=== PATIENT | female | born 1940 | race Caucasian/White ===

== ENCOUNTER 2023-11-16 23:35 | Emergency (ER) | payer OTHER, SELFPAY ==
--- NOTE | 2023-11-16 | ECG_ITS ---
Test Reason : CP Blood Pressure : / mmHG Vent. Rate : 060 BPM Atrial Rate : 060 BPM P-R Int : 234 ms QRS Dur : 098 ms QT Int : 446 ms P-R-T Axes : -02 -51 050 degrees QTc Int : 446 ms Atrial-paced rhythm with 1st degree A-V block Left anterior fascicular block Moderate voltage criteria for LVH, may be normal variant ( R in aVL , Sean product ) Abnormal ECG No previous ECGs available Referred By: Generic ED Physician Electronically Signed By:JU CONTE MD
--- NOTE | ~2023-11-16 | CT_ITS ---
EXAMINATION: CT ANGIOGRAM OF THE CHEST WITH AND WITHOUT CONTRAST (CT PULMONARY ANGIOGRAM FOR PE) CLINICAL INFORMATION: Reason for Exam sob COMPARISON: None available. TECHNIQUE: Prior to contrast administration, noncontrast localization images were obtained. Subsequently, multidetector volumetric imaging was performed from the thoracic inlet to below the diaphragms following the administration of 100 mL Omnipaque 350 intravenous contrast. No contrast reaction reported Sagittal, coronal, and MIP oblique sagittal reformatted images were obtained on the CT workstation, uploaded to PACS, and reviewed. This CT examination was performed using dose optimization techniques as appropriate, variously including the following: *Automated exposure control *Adjustment of mA and/or kV according to patient size (this includes techniques or standardized protocols for targeted exams where dose is matched to indication/reason for exam; i.e. extremities or head) *Use of iterative reconstruction technique Total exam dose-length product 257 mGy-cm FINDINGS: QUALITY OF STUDY/CONTRAST BOLUS: Satisfactory. PULMONARY ARTERIES: No filling defects are seen in the main, lobar, or segmental pulmonary arteries to suggest the presence of pulmonary emboli. THORACIC AORTA: No aneurysm or dissection. There is atherosclerotic calcification along the aorta. LUNG: Mild curvilinear debris noted within the trachea. Mosaic attenuation appearance of the lungs is suspicious for heterogeneous air trapping. Mild subsegmental atelectasis bilaterally. Right upper lobe 3 mm nodule on image 129/458. A couple 3 mm right middle lobe nodules are present such as on images 249 and 254/458. PLEURA: No pleural effusion or pneumothorax. MEDIASTINUM: The visualized thyroid gland is unremarkable. Borderline enlarged subcarinal lymph node. Mildly prominent bilateral hilar lymph nodes. Borderline cardiomegaly without pericardial effusion. Left-sided pacemaker lead tips extend to the right atrium and right ventricle. CORONARY ARTERY CALCIFICATION: Present CHEST WALL/AXILLA: No axillary or internal mammary lymphadenopathy. OSSEOUS STRUCTURES: Multilevel degenerative changes in the spine. UPPER ABDOMEN: Left hepatic lobe cyst. No reflux of contrast into the hepatic veins to suggest elevated right heart pressures. CT/CT angio chest PE protocol IMPRESSION: 1. No pulmonary embolus identified. 2. Mosaic attenuation appearance of the lungs is suspicious for heterogeneous air trapping. 3. Mildly prominent mediastinal and hilar lymph nodes, nonspecific and possibly reactive. In the proper clinical setting, malignant etiology cannot be excluded. 4. Few right lung nodules measuring up to 3 mm. According to the UPDATED 2017 Fleischner Society recommendations, the advised follow-up imaging for solid nodules < 6 mm is: LOW RISK PATIENT: No routine follow-up. HIGH RISK PATIENT: Optional CT at 12 months. VTE: negative.
[2023-11-16 23:41] VITALS: BP 115/70; PULSE 60; O2SAT 99
[2023-11-16 23:46] VITALS: BP 154/68; PULSE 60; RESP 15; TEMP 36.6; O2SAT 96; BMI 23.1
[2023-11-16 23:51] VITALS: PULSE 60
[2023-11-17 00:05] LABS: MANUAL DIFF FLAG NO
[2023-11-17 00:06] LABS: Basophils Percent Auto 0.4 % (0-2); Eosinophils Percent Auto 0.6 % (0-4); Hematocrit 36.7 % (37.0-47.0); Hemoglobin 12.4 g/dl (12.0-16.0); Imm Gran Abs Auto 0.01 X10*3/uL (0.00-0.03); Imm Gran Pct Auto 0.2 % (0.0-0.4); Lymphocytes Absolute Auto 1.4 X10*3/uL (1.2-4.9); Lymphocytes Percent Auto 27.5 % (20-40); Mean Corpuscular HGB Conc 33.8 g/dl (31.0-35.0); Mean Corpuscular Hemoglobin 30.8 pg (27.0-33.0); Mean Corpuscular Volume 91.3 fL (80.0-98.0); Mean Platelet Volume 10.5 fL (9.4-12.3); Monocytes Absolute Auto 0.7 X10*3/uL (0.1-1.2); Monocytes Percent Auto 12.9 % (2-11); Neutrophils Absolute Auto 2.9 x10*3/uL (2.0-8.3); Neutrophils Percent Auto 58.4 % (45-73); Platelet Count 170 X10*3/uL (160-400); Red Blood Count 4.02 X10*6/uL (4.20-5.50); Red Cell Distribution Width 12.9 % (11.0-16.0)
[2023-11-17 00:23] LABS: Anion Gap 14 (12-20); Blood Urea Nitrogen 24 mg/dL (9-16); Calcium 8.9 mg/dL (8.4-10.2); Carbon Dioxide 24 mmol/L (22-29); Chloride 112 mmol/L (96-108); Creatinine Clr Calc Pharmacy 38.7; Estimated Glomerular Filt Rate 47; Glucose Random 107 mg/dL (60-115); Potassium 3.9 mmol/L (3.3-5.1); Sodium 146 mmol/L (135-145)
[2023-11-17 00:29] LABS: Troponin-I High Sensitivity 17.4 ng/L (<3.5-17.0)
--- NOTE | 2023-11-17 01:12 | ED.CHESTPAIN ---
HPI - Chest Pain General Chief Complaint: Chest Pain Stated Complaint: cp Time Seen by Provider: 11/17/23 00:11 History of Present Illness HPI narrative: Patient is an 83-year-old female presents today with having chest pain that goes from the scapula to the right chest. The pain is sharp. 7/10. Associated with some shortness of breath. There has no diaphoresis. No fever no chills no coughing congestion. Has a history of a pacemaker. Claims the pain is worse with movement. Baseline is on Lasix aspirin and nitro. No fever no chills . ? hx of mi Related Data Allergies Allergy/AdvReac Type Severity Reaction Status Date / Time naproxen [NAPROXEN] Allergy Mild UNKNOWN Unverified 11/16/23 23:49 Penicillins [PENICILLINS] Allergy Unknown RASH Unverified 11/16/23 23:49 Penicillin Allergy Unknown Rash Uncoded 11/16/23 23:49 Review of Systems Review of Systems: Positive chest pain No diaphoresis No fever no chills Yes all other systems are reviewed and are negative [facility] Past Medical History Attestation statement: The following information was validated with the patient. Social History Social History Smoked in Last 30 Days: No Use of substances other than those prescribed or required for medical reasons: No Advance Directives: No Advance Directives Information Provided: Yes Physical Exam Vital Signs: Vital Signs: Last Vital Signs Temp 97.7 F 11/17/23 01:43 Pulse 60 11/17/23 01:43 Resp 16 11/17/23 01:43 BP 115/58 L 11/17/23 01:43 Pulse Ox 98 11/17/23 01:43 O2 Del Method Room Air 11/17/23 01:43 BMI result Body Mass Index 23.1 Appearance: Alert. Oriented X3. No acute distress. Eyes: Pupils equal, round and reactive to light. ENT: Pharynx normal. Neck: Normal inspection. Neck supple. No lymph nodes noted. No crepitus CVS: Normal heart rate and rhythm. Pulses normal. Normal S1 and S2 Respiratory: No respiratory distress. Breath sounds normal. No Wheezing. No rales Abdomen: Soft and nontender. No rigidity. No distention. good BS x4 Skin: Skin warm and dry. Normal skin color. Normal skin turgor. Extremities: No lower extremity edema. Neurovascular intact to all extremities. No Lacerations. No Rash Neuro: Oriented X 3. No motor deficit. No sensory deficit. Moving all extermities. No slurred speech Medications Administered Discontinued Medications Generic Name Dose Route Start Last Admin Trade Name Jaimee PRN Reason Stop Dose Admin Iohexol 65 ml 11/17/23 01:27 11/17/23 01:27 Iohexol 350 Mg/Ml 100 Ml Infus..Btl IV 11/17/23 01:28 65 ml ONCE ONE Administration Medical Decision Making Medical Decision Making [facility] Narrative: My interpretation of patient's EKG showed a sinus rhythm heart rate is 60 NE QRS QTC normal there is no acute ST segment elevation patient has chest pain that goes from the right scapular area to the right chest it is very sharp is worse with movement. Patient's pacemaker was interrogated. First set of troponin came back at 17. EKG not consistent with ACS. Patient denies being on blood thinners. Will get a CTA of the chest to rule out the possibility of PE. Second set of troponin is pending. Two sets of troponin was done. Patient's pain was atypical for ACS they were both negative. Patient's pacemaker was interrogated. Per [employer] report there was no episodes of ventricular tachycardia noted. One episode of nonsustained ventricular episode noted since November 29 2022. CTA of the chest showed no acute evidence of pulmonary emboli. No evidence for gross dissection. It did show enlarged lymph nodes , a few right-sided pulmonary nodules. Which will require follow-up on an outpatient basis. On recheck patient's pain is gone. She is 83 years old. She wants to go home. Does not want to stay in the hospital. In the setting of no pneumonia on CTA. No fever no chills no coughing. Will discharge patient home. Close follow-up advised Differential Diagnosis Differential Diagnoses: The differential diagnosis associated with the presentation includes Chest pain, ACS, pneumonia, PE, dissection Admission/Observation Consideration of admission/observation: Escalation of care including admission/observation considered Lab Data [facility] Lab Attestation statement: I reviewed the patient's lab results. 11/16/23 23:59 11/16/23 23:59 Labs: Lab Results 11/16/23 11/17/23 Range/Units 23:59 01:48 WBC 5.0 (4.8-10.8) X10*3/uL RBC 4.02 L (4.20-5.50) X10*6/uL Hgb 12.4 (12.0-16.0) g/dl Hct 36.7 L (37.0-47.0) % MCV 91.3 (80.0-98.0) fL MCH 30.8 (27.0-33.0) pg MCHC 33.8 (31.0-35.0) g/dl RDW 12.9 (11.0-16.0) % Plt Count 170 (160-400) X10*3/uL MPV 10.5 (9.4-12.3) fL Immature Gran % (Auto) 0.2 (0.0-0.4) % Neut % (Auto) 58.4 (45-73) % Lymph % (Auto) 27.5 (20-40) % [place] % (Auto) 12.9 H (2-11) % Eos % (Auto) 0.6 (0-4) % Baso % (Auto) 0.4 (0-2) % Lymph # (Auto) 1.4 (1.2-4.9) X10*3/uL [place] # (Auto) 0.7 (0.1-1.2) X10*3/uL Eos # (Auto) 0.0 (0.0-0.4) X10*3/uL Baso # (Auto) 0.0 (0.0-0.2) X10*3/uL Abs Immat Gran (auto) 0.01 (0.00-0.03) X10*3/uL Absolute Neuts (auto) 2.9 (2.0-8.3) x10*3/uL Absolute Nucleated RBC 0.000 (0.0-0.012) X10*3/uL Nucleated RBC % (auto) 0.0 (0.0-0.2) /100WBC Sodium 146 H (135-145) mmol/L Potassium 3.9 (3.3-5.1) mmol/L Chloride 112 H (96-108) mmol/L Carbon Dioxide 24 (22-29) mmol/L Anion Gap 14 (12-20) BUN 24 H (9-16) mg/dL Creatinine 1.11 (0.5-1.4) mg/dL Estim Creat Clear Calc 38.7 Estimated GFR 47 Random Glucose 107 (60-115) mg/dL Calcium 8.9 (8.4-10.2) mg/dL Troponin I High Sens 17.4 H 14.7 (<3.5-17.0) ng/L Independent Interpretation I performed an independent interpretation of an: EKG (Sinus heart rate is 60 NE QRS QTC normal no acute ST segment elevation) Radiology Impression Discussion of test interpretation with radiology: I have reviewed the radiologist's reading. External Record Review No old records could be found Chronic Conditions Patient?s care impacted by: Hypertension Sat history of pacemaker Discharge Plan Discharge Clinical Impression: Chest pain Patient Disposition: Home, Self-Care Instructions: Chest Pain (DC) Additional Instructions: A few lung nodule was noted on the right side. Follow-up advised. Lymph nodes noted in the mediastinum. Can not rule out possibility of of malignancy. Please closely follow-up Referrals: Physician,Villa J [Primary Care Provider] - 11/21/23 Print Language: Slovenian
[2023-11-17] MEDS: iohexoL 350 MG/ML 100 ML INFUS..BTL 65 ML IV (01:27)
[2023-11-17 01:43] VITALS: BP 115/58; PULSE 60; RESP 16; TEMP 36.5; O2SAT 98
[2023-11-17 02:15] LABS: Troponin-I High Sensitivity 14.7 ng/L (<3.5-17.0)
--- NOTE | 2023-11-17 04:58 | PC.NURSE ---
Juanita (granddaughter) [phone] please call her when ready for discharge.
[2023-11-17 05:56] VITALS: BP 115/58; PULSE 60; RESP 16; TEMP 36.5; O2SAT 98
--- OUTSIDE RECORDS SUMMARY | 2023-11-18 10:50 | XMS_ITS | Continuity of Care Document ---
Author Organization [facility] Address [address] [facility], [address] d Floor, [address] [place] [address]- Care Team Providers Care Rand Sewer Name Role Phone Lavern BURROWS, Neetu Primary Care Physician Encounter [facility] Date(s): 11/01/19 - 12/09/19 [facility] [address], [address], [address] [place] [address]- [facility] Attending Physician: Lilian Wooten MD Allergies, Adverse Reactions, Alerts Substance Reaction Severity Status ibuprofen rash Persistent Severe Active naproxen rash Persistent Severe Active penicillin Rash Active Medications alendronate 70 mg oral tablet 1 tablet = 70 mg, By Mouth, Every week, # 12 tablet, 0 Refills, Maintenance, 06/11/15 13:23:51, Tablet Start Date: 06/11/15 Status: Ordered amLODIPine 5 mg oral tablet 5 mg, 1, tablet, By Mouth, Daily, # 30 tablet, Refills 2, Tot. Refills 2, Maintenance, 08/02/16 16:44:08, Print Requisition Start Date: 08/02/16 Status: Ordered aspirin 81 mg oral tablet 1 tablet = 81 mg, By Mouth, Daily, # 30 tablet, 0 Refills, Maintenance, 03/17/16 8:51:36, Tablet Start Date: 03/17/16 Status: Ordered atorvastatin 40 mg oral tablet 1 tablet = 40 mg, By Mouth, Daily, # 30 tablet, 0 Refills, Maintenance, 06/09/19 10:35:00 EST, Tablet Start Date: 06/09/19 Status: Ordered omeprazole 20 mg oral enteric coated capsule 1 capsule = 20 mg, By Mouth, Daily, # 30 capsule, 0 Refills, Maintenance, 06/11/15 13:22:58, EC Capsule Start Date: 06/11/15 Status: Ordered Vitamin B-12 500 mcg oral tablet 1 tablet = 500 mcg, By Mouth, Daily, # 30 tablet, 0 Refills, Maintenance, 03/17/16 8:57:43, Tablet Start Date: 03/17/16 Status: Ordered Vitamin C 500 mg oral tablet 1 tablet = 500 mg, By Mouth, Daily, # 30 tablet, 0 Refills, Maintenance, 06/09/19 10:36:00 EST, Tablet Start Date: 06/09/19 Status: Ordered Vitamin D3 2000 intl units oral capsule 1 capsule = 2,000 International_Units, By Mouth, Daily, 0 Refills, Maintenance, 06/09/19 10:36:00 EST Start Date: 06/09/19 Status: Ordered Problem List Condition Effective Dates Status Health Status Inform ant Abdominal pain, generalized(Confirmed) Active Diagnostic colonoscopy(Confirmed) Active Dysphagia(Confirmed) Active Epigastric pain(Confirmed) Active Change in stool(Confirmed) Active HTN (hypertension)(Confirmed) Active Nausea(Confirmed) Active Paroxysmal a-fib(Confirmed) Active PAF (paroxysmal atrial fibrillation)(Confirmed) Active Odynophagia(Confirmed) Active Well female adult(Confirmed) Active Social History Social History Type Response Smoking Status Never smoker; Tobacc o user in household: No entered on: 08/23/16 Sex
--- OUTSIDE RECORDS SUMMARY | 2023-11-18 10:50 | XMS_ITS | Continuity of Care Document ---
Author Organization [facility] Address [address] [place] [address]- Care Team Providers Care Assistant In Nursing Name Role Phone Neetu Puckett MD Primary Care Physician Encounter [facility] Date(s): 05/24/20 - 06/29/20 [facility] [address] [place] [address]- Attending Physician: Neetu Puckett MD Admitting Physician: Neetu Puckett MD Referring Physician: Neetu Puckett MD Allergies, Adverse Reactions, Alerts Substance Reaction Severity Status ibuprofen rash Persistent Severe Active naproxen rash Persistent Severe Active penicillin Rash Active lisinopril Active Medications alendronate 70 mg oral tablet [...] EC Capsule Start Date: 06/11/15 Status: Ordered Physcial Therapy for Right Arm Evalution Physcial Therapy for Right Arm Evalution, See Instructions, # 1 each, Refills 0, Tot. Refills 0, Maintenance, Evalution on Right Arm, 04/07/20 12:40:00 EDT, Supply Start Date: 04/07/20 Status: Ordered Splint See Instructions, # 1 each, Refills 0, Tot. Refills 0, Maintenance, Apply neutral wrist splint to right hand every night for carpal tunnel syndrome, 12/19/19 10:21:00 EDT, Please call patient when splint available., Supply, 152, cm, 06/12/19 8:06:00 E... Start Date: 12/19/19 Status: Ordered Vitamin B-12 500 mcg oral [...]
--- OUTSIDE RECORDS SUMMARY | 2023-11-18 10:50 | XMS_ITS | Continuity of Care Document ---
Author Organization [facility] Address [address] [place] [address]- Care Team Providers Care Loss Claim Clerk Name Role Phone Lavern BURROWS, Neetu Primary Care Physician Encounter [facility] Date(s): 06/05/19 - 06/05/[address] [address]- [facility] Attending Physician: Luis Enrique STEIN, Katherine House Allergies, Adverse Reactions, Alerts Substance Reaction Severity Status ibuprofen rash Persistent Severe Active naproxen rash Persistent Severe Active penicillin Rash Active aspirin Active Medications alendronate 70 mg oral tablet [...] Tablet Start Date: 03/17/16 Status: Ordered atorvastatin 20 mg oral tablet 1 tablet = 20 mg, By Mouth, Daily at bedtime, 0 Refills, Maintenance, 08/05/15 8:57:25 Start Date: 08/05/15 Status: Ordered NuLYTELY with Flavor Packs oral powder for reconstitution 240 mL, By Mouth, Every 15 minutes, # 4,000 mL, 0 Refills, Maintenance, 10/28/17 11:06:15 EDT, 240 mL By Mouth Every 15 minutes Start Date: 10/28/17 Status: Ordered omeprazole 20 mg oral enteric coated capsule 1 capsule = 20 mg, By Mouth, Daily, # 30 capsule, 0 Refills, Maintenance, 06/11/15 13:22:58, EC Capsule Start Date: 06/11/15 Status: Ordered Vitamin D2 125mg Vitamin D2 125mg, Refills 0, Maintenance, 08/05/15 8:58:18, Compound Start Date: 08/05/15 Status: Ordered Vitamin B-12 500 mcg oral tablet 1 tablet = 500 mcg, By Mouth, Daily, # 30 tablet, 0 Refills, Maintenance, 03/17/16 8:57:43, Tablet Start Date: 03/17/16 Status: Ordered Problem List Condition Effective Dates [...]
--- OUTSIDE RECORDS SUMMARY | 2023-11-18 10:50 | XMS_ITS | Continuity of Care Document ---
Author Organization [facility] Address [address] [place] [phone]- Care Team Providers Care Director Of Email Marketing Name Role Phone Lavern BURROWS, Neetu Primary Care Physician Encounter [facility] Date(s): 04/02/20 - 04/09/20 [facility] [address] [place] [address]- [facility] Attending Physician: Brandon Vargas MD Admitting Physician: Brandon Vargas MD Referring Physician: Luis Enrique STEIN, Katherine House Allergies, [...] Active Odynophagia(Confirmed) Active Well female adult(Confirmed) Active Vital Signs Most recent to oldest [Reference Range]: 1 Height 152 cm (04/02/20 3:15 PM) Weight 74.39 kg (04/02/20 3:15 PM) Oxygen Saturation [94-100 %] 98 % (04/02/20 3:15 PM) Pulse Rate [55-90 bpm] 73 bpm (04/02/20 3:15 PM) Body Mass Index [18.5-24.99] 32.2 *>HHI* (04/02/20 3:15 PM) Blood Pressure [90-138/55-84 mm Hg] 110/ 62mm Hg (04/02/20 3:15 PM) Blood pressure sites Arm, left (04/02/20 3:15 PM) Weight Obtained Via Patient/family state d (04/02/20 3:15 PM) Social History Social History Type Response Smoking Status Never smoker; Tobacc o user in household: No entered on: 08/23/16 Sex
--- OUTSIDE RECORDS SUMMARY | 2023-11-18 10:50 | XMS_ITS | Continuity of Care Document ---
Author Organization [facility] Address [address] [place] [address]- Care Team Providers Care Dredge Mate Name Role Phone Neetu Puckett MD Primary Care Physician Encounter [facility] Date(s): 01/09/20 - 04/11/20 [facility] [address] [address]- [facility] Attending Physician: Alexandra Daniels MD Admitting Physician: Alexandra Daniels MD Referring Physician: Neetu Puckett MD Allergies, [...]
--- OUTSIDE RECORDS SUMMARY | 2023-11-18 10:50 | XMS_ITS | Continuity of Care Document ---
Author Organization [facility] Address [address] [place] [address]- Care Team Providers Care Manager Chemistry Name Role Phone Lavern BURROWS, Keenan Primary Care Physician [id number] Date(s): 11/04/22 - 12/04/22 [facility] [address] [place], [place] [address] Attending Physician: Alejandro Webb Admitting Physician: AdmAlejandro pantoja Referring Physician: AdmtrAlejandro Allergies, Adverse Reactions, Alerts Substance Reaction Severity [...] EST, Tablet Start Date: 06/09/19 Status: Ordered diclofenac 1% topical gel = 2 Gm, Topically, 4 times a day, 0 Refills, Maintenance, 03/18/22 14:25:00 EDT, Partial fill upon patient request if the prescription is for a schedule II opioid drug. Start Date: 03/18/22 Status: Ordered furosemide 20 mg oral tablet 20 mg, 1, tablet, By Mouth, Daily, # 30 tablet, Refills 0, Maintenance, 03/18/22 14:24:00 EDT, Partial fill upon patient request if the prescription is for a schedule II opioid drug. Start Date: 03/18/22 Status: Ordered losartan 50 mg oral tablet 50 mg, 1, tablet, By Mouth, Daily, # 30 tablet, Refills 0, Maintenance, 03/18/22 14:24:00 EDT, Partial fill upon patient request if the prescription is for a schedule II opioid drug. Start Date: 03/18/22 Status: Ordered omeprazole 20 mg oral enteric coated capsule 1 capsule = 20 mg, By Mouth, Daily, # 30 capsule, 0 Refills, Maintenance, 06/11/15 13:22:58, EC Capsule Start Date: 06/11/15 Status: Ordered oxyCODONE 5 mg oral tablet See Instructions, 1 tablet By Mouth Every 4 hours as needed for pain. DO NOT DRIVE WHILE TAKING THIS MEDICATION., Refills 0, Tot. Refills 0, Maintenance, 06/09/22 14:14:00 EST, Instructions Replace Required Details, Partial fill upon patient request... Start Date: 06/09/22 Status: Ordered Physcial Therapy for Right Arm [...] Refills, Maintenance, 03/17/16 8:57:43, Tablet Start Date: 10/5/16 Status: Ordered Vitamin C 500 mg oral tablet 1 tablet = 500 mg, By Mouth, Daily, # 30 tablet, 0 Refills, Maintenance, 06/09/19 10:36:00 EST, Tablet Start Date: 06/09/19 Status: Ordered Vitamin D3 2000 intl units oral capsule 1 capsule = 2,000 International_Units, By Mouth, Daily, 0 Refills, Maintenance, 06/09/19 10:36:00 EST Start Date: 06/09/19 Status: Ordered Problem List Condition Confirmation Course Effective Dates Status Health St atus Informant Abdominal pain, generalized Confirmed Active Diagnostic colonoscopy Confirmed Active Dysphagia Confirmed Active Epigastric pain Confirmed Active Change in stool Confirmed Active HTN (hypertension) Confirmed Active Nausea Confirmed Active Obese class I Confirmed Active Paroxysmal a-fib Confirmed Active PAF (paroxysmal atrial fibrillation) Confirmed Active Odynophagia Confirmed Active Well female adult Confirmed Active Social History Social History Type Response Smoking Status Never smoker; Tobacc o user in household: No entered on: 08/23/16 Sex Patient Care team information Care Team Personnel Name: Keenan Puckett MD Position: [facility] Outreach Member Role: PCP Address: Address: [address] [place] [address] Keenan Puckett MD [address] Name: Ayana Peña RN Position: [facility] RN Member Role: Primary Care Nurse Care Team Related Persons Name: NEL OSBORNE Address: [place] [address] Name: DARLIN ESCOBAR Address: home [address] [place] [address] Name: ALEXANDER ESCOBAR Address: home [address] [place] [address] Name: MIO GARCIA Address: home [address] [place] [address]
--- OUTSIDE RECORDS SUMMARY | 2023-11-18 10:50 | XMS_ITS | Continuity of Care Document ---
Author Organization [facility] Address [address] [facility], [address] d Floor, [address] [place] [address]- Care Team Providers Care Job Putter Up And Ticket Preparer Name Role Phone Lavern BURROWS, Neetu Primary Care Physician Encounter [facility] Date(s): 04/04/20 - 07/10/20 [facility] [address], [address], [address] [place] [phone] Attending Physician: Lilian Wooten MD Admitting Physician: Lilian Wooten MD Allergies, Adverse Reactions, [...]
--- OUTSIDE RECORDS SUMMARY | 2023-11-18 10:50 | XMS_ITS | Continuity of Care Document ---
Author Organization [facility] Address [address] [facility], [address] Floor, [address] [place] [address]- Care Team Providers Care Sap Bi Developer Name Role Phone Neetu Puckett MD Primary Care Physician Encounter [facility] Date(s): 08/27/19 - 12/09/19 [facility] [address], [address], [address] [place] [address]- [facility] Attending Physician: Lilian Wooten MD Admitting Physician: Lilian Wooten MD Referring Physician: Ni Ortiz MD Allergies, Adverse Reactions, Alerts Substance Reaction [...]
--- OUTSIDE RECORDS SUMMARY | 2023-11-18 10:50 | XMS_ITS | Continuity of Care Document ---
Author Organization [facility] Address [address] [place] [address]- Care Team Providers Care Buyer Name Role Phone Lavern BURROWS, Neetu Primary Care Physician Encounter [facility] Date(s): 07/18/20 - 08/17/20 [facility] [address] [address] Attending Physician: Alejandro Webb Admitting Physician: Alejandro Webb Referring Physician: AdmtrAlejandro Allergies, Adverse Reactions, Alerts [...]
--- OUTSIDE RECORDS SUMMARY | 2023-11-18 10:50 | XMS_ITS | Continuity of Care Document ---
Author Organization [facility] ter Address [address] [place] [address]- Care Team Providers Care Security Representative Name Role Phone Neetu Puckett MD Primary Care Physician Encounter [facility] [place] [place] ACCT R [id number] Date(s): 06/08/19 - 06/08/[address] [address]- [facility] Attending Physician: Luis Enrique DELINQUENCY PREVENTION OFFICER, Katherine House Allergies, Adverse Reactions, Alerts Substance [...]
--- OUTSIDE RECORDS SUMMARY | 2023-11-18 10:50 | XMS_ITS | Continuity of Care Document ---
Author Organization [facility] Address [address] [facility], 3r d Floor, [address] [place] [address]- Care Team Providers Care Commercial Lines Assistant Name Role Phone Lavern BURROWS, Neetu Primary Care Physician Encounter [facility] [place] Date(s): 02/19/20 - 03/20/20 [facility] [address], 3rd Floor, [address] [place] [address]- [facility] Attending Physician: Alejandro Webb Admitting Physician: Alejandro [...] EC Capsule Start Date: 06/11/15 Status: Ordered Splint See Instructions, # 1 [...]
--- OUTSIDE RECORDS SUMMARY | 2023-11-18 10:50 | XMS_ITS | Continuity of Care Document ---
Author Organization [facility] Address [address] [facility], 3r d Floor, [address] [place] [address]- Care Team Providers Care Pathology Supervisor Name Role Phone Lavern BURROWS, Neetu Primary Care Physician Encounter [facility] Date(s): 08/22/20 - 09/21/20 [facility] [address] [place], 3rd Floor, [address] [place] [address] Attending Physician: Alejandro Webb Admitting Physician: Alejandro [...]
--- OUTSIDE RECORDS SUMMARY | 2023-11-18 10:50 | XMS_ITS | Continuity of Care Document ---
Author Organization [facility] Address [address] [facility], 3r d Floor, [address] [place] [address]- Care Team Providers Care Structural Technician Name Role Phone Lavern BURROWS, Neetu Primary Care Physician Encounter [facility] [place] Date(s): 06/11/20 - 10/09/20 [facility] [address] [place], 3rd Floor, [address] [place] [address]- Attending Physician: Yamilka Zheng MD Admitting Physician: Yamilka Zheng MD Allergies, Adverse Reactions, Alerts Substance Reaction [...]
--- OUTSIDE RECORDS SUMMARY | 2023-11-18 10:50 | XMS_ITS | Continuity of Care Document ---
Author Organization [facility] ter Address [address] [place] [address]- Care Team Providers Care Maple Products Maker Name Role Phone Neetu Puckett MD Primary Care Physician [id number] Date(s): 06/09/19 - 06/12/[address] [address]- [facility] Encounter Diagnosis Precordial chest pain(Final) - 06/09/19 Shortness of breath(Final) - 06/09/19 Discharge Disposition: A-D/C Home Attending Physician: Meka Leary MD Admitting Physician: Ko BURROWS, Joann Referring Physician: Not on Staff, Referring MD Allergies, Adverse Reactions, Alerts Substance Reaction [...] Most recent to oldest [Reference Range]: 1 2 3 Height 152 cm (06/12/19 8:06 AM) 152 cm (06/12/19 4:51 AM) 152 cm (06/12/19 4:50 AM) Weight 76.8 kg (06/09/19 11:44 AM) 76.8 kg (06/09/19 8:08 AM) Oxygen Saturation [94-100 %] 94 % (06/12/19 8:06 AM) 97 % (06/12/19 4:51 AM) 99 % (06/12/19 4:50 AM) Pulse Rate [55-90 bpm] 80 bpm (06/12/19 8:06 AM) 66 bpm (06/12/19 4:51 AM) 114 bpm *H* (06/12/19 4:50 AM) Body Mass Index [18.5-24.99] 33.24 *>HHI* (06/09/19 11:44 AM) 33.24 *>HHI* (06/09/19 8:08 AM) Blood Pressure [90-138/55-84 mm Hg] 131/103mm Hg (06/12/19 8:44 AM) 131/103mm Hg (06/12/19 8:06 AM) 145/71mm Hg *H* (06/12/19 4:51 AM) Respiratory Rate [16-30 br/min] 18 br/min (06/12/19 8:06 AM) 18 br/min (06/12/19 4:51 AM) 18 br/min (06/12/19 4:50 AM) Temperature [96.8-100.4 DegF] 97.9 DegF (06/12/19 8:06 AM) 98.1 DegF (06/12/19 4:51 AM) 98.3 DegF (06/12/19 4:50 AM) Liters per Minute 0 L/min (06/10/19 3:58 AM) 0 L/min (06/09/19 11:17 PM) 0 L/min (06/09/19 8:07 PM) Mode of Delivery (Oxygen) Room air (06/12/19 8:06 AM) Room air (06/12/19 4:51 AM) Room air (06/12/19 4:50 AM) Blood pressure sites Arm, right (06/12/19 8:06 AM) Arm, left (06/12/19 4:51 AM) Arm, left (06/12/19 4:50 AM) Temperature Route Oral (06/12/19 8:06 AM) Oral (06/12/19 4:51 AM) Oral (06/12/19 4:50 AM) Dry Weight 76 kg (06/09/19 10:25 AM) Weight Obtained Via Bed scale (06/09/19 11:44 AM) Sensory deficits Hearing deficit R (06/09/19 10:25 AM) Mobility assistance Independent 1 (06/09/19 10:25 AM) 1Result Comment: with cane Social History Social History Type Response Smoking Status Never smoker; Tobacc o user in household: No entered on: 08/23/16 Sex
--- OUTSIDE RECORDS SUMMARY | 2023-11-18 10:50 | XMS_ITS | Continuity of Care Document ---
Author Organization [facility] ter Address [address] [place] [address]- Care Team Providers Care Sampler Radioactive Waste Name Role Phone Keenan Puckett MD Primary Care Physician Encounter [place] Date(s): 03/03/22 - 06/11/[address] [address] Attending Physician: Keenan Puckett MD Admitting Physician: Keenan Puckett MD Referring Physician: Keenan Puckett MD Allergies, Adverse Reactions, Alerts Substance [...] Team Personnel Name: Keenan Puckett MD Position: [facility] Outreach Member Role: PCP Address: Address: [address] [place] [address] Keenan Puckett MD [address] Name: Ayana Peña RN Position: [facility] RN Member Role: Primary Care Nurse Care Team Related Persons Name: NEL OSBORNE Address: [place] [address] Name: DARLIN ESCOBAR Address: home [address] [place] [address] Name: ALEXANDER ESCOBAR Address: home [address] [place] [address] Name: MIO GARCIA Address: home [address] [place] [address]
--- OUTSIDE RECORDS SUMMARY | 2023-11-18 10:50 | XMS_ITS | Continuity of Care Document ---
Author Organization [facility] Address [address] [facility], 3r d Floor, [address] [place] [address]- Care Team Providers Care Relief Man Name Role Phone Lavern BURROWS, Neetu Primary Care Physician Encounter [facility] [place] Date(s): 11/06/19 - 01/12/20 [facility] [address], 3[address] Floor, [address] [place] [address]- [facility] Attending Physician: Lilian Wooten MD Admitting Physician: [...]
--- OUTSIDE RECORDS SUMMARY | 2023-11-18 10:51 | XMS_ITS | Continuity of Care Document ---
Author Organization [facility] ter Address [address] [place] [address]- Care Team Providers Care Billing Associate Name Role Phone Lavern BURROWS, Neetu Primary Care Physician [place] [facility] [place] 03/20/21 - 04/29/[address] [address] Attending Physician: Eulalia Carmona MD Admitting Physician: Eulalia Carmona MD Referring Physician: Eulalia Carmona MD Allergies, Adverse Reactions, Alerts Substance Reaction [...]
--- OUTSIDE RECORDS SUMMARY | 2023-11-18 10:51 | XMS_ITS | Continuity of Care Document ---
Author Organization [facility] ter Address [address] [place] [address]- Care Team Providers Care Central Supply Tech Name Role Phone Keenan Puckett MD Primary Care Physician Encounter [facility] [place] Date(s): 08/24/23 - 10/06/[address] [address] Attending Physician: Keenan Puckett MD [...] Team Personnel Name: Keenan Puckett MD Position: [facility] Outreach Member Role: PCP Address: Address: [address] [place] [address] Keenan Puckett MD [address] Name: Ayana Peña RN Position: [facility] RN Member Role: Primary Care Nurse Care Team Related Persons Name: NEL OSBORNE Address: [place] [address] Name: DARLIN ESCOBAR Address: home [address] [place] [address] Name: ALEXANDER ESCOBAR Address: home [address] [place] [address] Name: MIO GARCIA Address: home [address] [place] [address]
--- OUTSIDE RECORDS SUMMARY | 2023-11-18 10:51 | XMS_ITS | Continuity of Care Document ---
Author Organization [facility] Address [address] [place] [address]- Care Team Providers Care Product Consultant Name Role Phone Lavern BURROWS, Neetu Primary Care Physician Encounter [facility] [place] Date(s): 03/12/20 - 04/11/20 [facility] [address] [place] [address]- [facility] Attending Physician: Alejandro Webb Admitting Physician: Alejandro [...]
--- OUTSIDE RECORDS SUMMARY | 2023-11-18 10:51 | XMS_ITS | Continuity of Care Document ---
Author Organization [facility] Address [address] [facility], [address] [place] [address]- Care Team Providers Care Bail Bond Agent Name Role Phone Keenan Puckett MD Primary Care Physician [facility] [id number] Date(s): 04/19/22 - 05/19/22 [facility] [address] [facility], [address]th [place], [place] [address] Attending Physician: Alejandro Webb Admitting Physician: AdmAlejandro pantoja Referring Physician: Admtr ArAki Allergies, Adverse Reactions, Alerts Substance Reaction Severity [...] Team Personnel Name: Keenan Puckett MD Position: [facility] Outreach Member Role: PCP Address: Address: [address] [place] [address] MD Lavern [address] Name: Ayana Peña RN Position: [facility] RN Member Role: Primary Care Nurse Care Team Related Persons Name: NEL OSBORNE Address: [place] [address] Name: DARLIN ESCOBAR Address: home [address] [place] [address] Name: ALEXANDER ESCOBAR Address: home [address] [place] [address] Name: MIO GARCIA Address: home [address] [place] [address]
--- OUTSIDE RECORDS SUMMARY | 2023-11-18 10:51 | XMS_ITS | Continuity of Care Document ---
Author Organization [facility] Address [address] [facility], 3r d Floor, [address] [place] [address]- Care Team Providers Care Global Mobility Specialist Name Role Phone Lavern BURROWS, Neetu Primary Care Physician [place] [facility] [place]/22[place]20 - 03/23/20 [facility] [address], 3[address], [address] [place] [address]- [place] Allergies, Adverse Reactions, Alerts Substance Reaction Severity [...]
== END 2023-11-17 06:03 | disposition home or self-care (01) ==
PROVIDERS: Emergency Provider Emergency Medicine Emergency Medical Services
DX: R07.89 Other chest pain (principal); Z79.899 Other long term (current) drug therapy
CPT/HCPCS: 36415; 71275; 80048; 84484; 85025; 93005; 99284; 99285; Q9967

== ENCOUNTER → 2023-11-16 23:38 | Outpatient (BNV) | payer OTHER, SELFPAY | PROVIDERS: Emergency Provider Emergency Medicine Emergency Medical Services; Visit Provider Internal Medicine Cardiovascular Disease | DX: I44.0 Atrioventricular block, first degree (principal) | CPT/HCPCS: 93010 ==